=== PATIENT | female | born 1970 | race African-American/Black ===

== ENCOUNTER → 2017-11-23 | Day surgery (SDC) | payer OTHER ==
[~2017-11-23] MED LIST: IBUPROFEN800 M1 PO; NAPROSYN500 M1 PO; PERCOCET 5-3251 EACH PO; ROBAXIN-750750 M1 PO; TYLENOL WITH C1 EACH PO
--- NOTE | 2017-11-23 11:34 | Operative Report ---
Operative/Inv Procedure Report Surgery Date: 11/23/17 Name of Procedure: Excision Of lipoma left great toe Pre-Operative Diagnosis: Mass left great toe Post-Operative Diagnosis: Same Estimated Blood Loss: scant Surgeon/Media Planner: Margarito Lind MD Anesthesia: local monitored anesthesi, moderate sedation, block IV Fluids: See anesthesia record Implants: None Specimens: Mass from left great toe was sent to pathology for permanent section Tourniquet: 12 minutes Complications: None Condition: Stable Operative Indication: Patient's a 47-year-old female set up enlarging mass slowly growing on the left great toe dorsal surface. She was indicated for surgical excision. Risks and benefits of the procedure discussed patient in the office and she wished to proceed. Operative/Procedure Note Note: Once informed consent was obtained and the correct limb was identified patient brought to operative room placed on table supine position. After administration of sedation an ankle blocks performed with 30 mL of 0.5% Marcaine without epinephrine and 10 mL of 1% lidocaine without epinephrine around the planned incision site. Left foot was prepped and draped usual sterile fashion. To begin the procedure a dorsal incision was made directly over the palpable mass. Sharp dissection dissection was carried down to the skin with a #15 blade. The mass immediately popped out of the incision and the remainder the mass was dissected out with a tenotomy scissor. This was done without any complication. There are no significant neurovascular bundles attached with the mass. The foot was then irrigated with sterile saline. Skin was closed with 3-0 nylon interrupted sutures and a sterile dressing was applied. The patient was awakened taken recovery in stable condition.
== END ==
LOC: STS 05:03
DX: D17.39 Benign lipomatous neoplasm of skin and subcutaneous tissue of other sites (principal)
CPT/HCPCS: 88304; J0690; J1885; J2250; J2405; J3490